=== PATIENT | male | born 1970 | race Caucasian/White ===

== ENCOUNTER 2021-01-20 19:29 | Emergency (ER) | payer BC, SELFPAY ==
--- NOTE | ~2021-01-20 | XR_ITS ---
XR knee LT min 4V 01/20/2021 19:47 INDICATION: Left knee pain PROCEDURE: 4 views left knee COMPARISON: No prior studies for comparison. FINDINGS: Fracture, dislocation or subluxation is not identified. The soft tissues appear within norm al limits. No foreign bodies are identified. IMPRESSION: 1: NO ACUTE BONE OR JOINT ABNORMALITY IDENTIFIED. Reviewed, dictated and finalized at location A.
[2021-01-20 19:33] VITALS: BP 132/79; PULSE 96; RESP 16; TEMP 36.9; O2SAT 98
--- NOTE | 2021-01-20 20:21 | ED.EXTPRO ---
HPI - Extremity Problem General Chief complaint: Extremity Problem,Nontraumatic Stated complaint: L Knee pain and swelling Time Seen by Provider: 01/20/21 19:44 Source: patient Mode of arrival: ambulatory Limitations: no limitations History of Present Illness HPI Narrative: Patient is 50 years old white male presents with pain and redness of the left knee anteriorly is started 2 days ago. After kneeling down on the ground to fix a car. Patient believes that he is high likely got stung by a wasp or something. Patient denies any fever, chills, nausea, vomiting, history of diabetes. Related Data Allergies Allergy/AdvReac Type Severity Reaction Status Date / Time fluticasone Allergy Unknown flu like Verified 01/20/21 19:40 symptoms Penicillins Allergy Unknown Hives Verified 01/20/21 19:40 salmeterol Allergy Unknown Unknown Verified 01/20/21 19:40 Review of Systems Review of Systems: Narrative: CONSTITUTIONAL: Denies fever, chills, or sweats. EYES: Denies visual changes, redness, or discharge. ENT: Denies rhinorrhea, congestion, sore throat, or otalgia. CARDIOVASCULAR: Denies chest pain, palpitations, or edema. RESPIRATORY: Denies cough or dyspnea. GASTROINTESTINAL: Denies abdominal pain, nausea, vomiting, or diarrhea. GENITOURINARY: Denies dysuria or hematuria. SKIN: Denies rash or itching. MUSCULOSKELETAL: Denies back pain, joint pain, or myalgia. NEUROLOGIC: Denies headache, numbness, or weakness. PSYCHIATRIC: Denies anxiety or depression. PMFSH Past Medical History Medical History Chronic obstructive pulmonary disease, unspecified Mixed hyperlipidemia Pulmonary emphysema Tobacco use disorder Vitamin D deficiency, unspecified Family History Family History Other Cerebrovascular accident Family history of arthritis Family history of cardiovascular disease Family history of chronic obstructive pulmonary disease Social History Social History Smoking packs per day: 2 Smoking cigarettes per day: 40.0 Smoking status: Current every day smoker Exam Narrative: Exam Narrative: General appearance: Well-developed, well-nourished Skin: Normal color, left knee showed diffuse erythema, slight tenderness, warmth anteriorly, no discharge Head: Normocephalic, nontraumatic Chest and respiratory: Airway patent, no respiratory distress, no accessory muscle use Heart: Regular rate/rhythm Abdomen: Soft, nontender, no organomegaly, quiet bowel sounds Vascular: Normal peripheral pulses, normal capillary refill. Musculoskeletal: Normal range of motion, nontender back Neurologic: Alert and oriented ?3, Course Course Emergency Course: Stable Vital Signs Vital signs: Vital Signs Temperature 36.9 C 01/20/21 19:33 Pulse Rate 96 01/20/21 19:33 Respiratory Rate 16 01/20/21 19:33 Blood Pressure 132/79 01/20/21 19:33 Pulse Oximetry 98 01/20/21 19:33 Temperature 36.9 C 01/20/21 19:33 Pulse Rate 96 01/20/21 19:33 Respiratory Rate 16 01/20/21 19:33 Blood Pressure 132/79 01/20/21 19:33 Pulse Oximetry 98 01/20/21 19:33 MDM - Extremity (Nontraumatic) MDM Narrative Medical decision making narrative: Cellulitis left knee is my concern. X-ray left knee ordered by triage, vancomycin IV ordered by me. Patient will be discharged on clindamycin. Differential Diagnosis Differential diagnosis: Likely other (Cellulitis) Imaging Data Radiologist's impression: Impressions Knee X-Ray 01/20/21 19:55 IMPRESSION: 1: NO ACUTE BONE OR JOINT ABNORMALITY IDENTIFIED.
[2021-01-20 22:20] VITALS: BP 124/86; PULSE 90; RESP 16; O2SAT 98
== END 2021-01-20 22:20 | disposition home or self-care (01) ==
PROVIDERS: Emergency Provider Emergency Medicine
DX: L03.116 Cellulitis of left lower limb (principal); J43.9 Emphysema, unspecified; E78.2 Mixed hyperlipidemia; E55.9 Vitamin D deficiency, unspecified; F17.210 Nicotine dependence, cigarettes, uncomplicated
CPT/HCPCS: 73564; 96365; 96366; 99284; J3370

== ENCOUNTER 2022-04-05 15:13 | Emergency (ER) | payer BC, SELFPAY ==
--- NOTE | ~2022-04-05 | XR_ITS ---
XR shoulder RT min 2V 04/05/2022 15:37 Indication: Right shoulder pain Procedure: 4 views right shoulder Comparison: No prior studies for comparison. Findings: There is mild polyarticular osteoarthritis. No fracture or traumatic malalignment. There is a healed distal clavicular fracture. No soft tissue abnormality. No foreign bodies. Impression: 1: Mild polyarticular osteoarthritis. Reviewed, dictated and finalized at location A. Impression: 1: Mild polyarticular osteoarthritis.
[2022-04-05 15:25] VITALS: BP 123/78; PULSE 86; RESP 18; TEMP 36.8; O2SAT 99
--- NOTE | 2022-04-05 15:40 | ED.UPPEXIN ---
HPI - Extremity Injury (Upper) General Chief Complaint: Extremity Problem,Nontraumatic Stated Complaint: Pain in right arm Time Seen by Provider: 04/05/22 15:43 Source: patient and RN notes reviewed Mode of arrival: ambulatory Limitations: no limitations History of Present Illness HPI narrative: 51-year-old male presents with concern for right shoulder pain. He reports earlier this week he began having shoulder pain when he woke up, he denies any injury or trauma. Reports that aches at rest and worsens with moving. He reports he hears a crunching sound in his shoulder. He reports some tingling in his fingers. He denies neck pain. He reports the shoulder pain is deep in the shoulder joint. MD complaint: injury to: right and shoulder Related Data Allergies Allergy/AdvReac Type Severity Reaction Status Date / Time fluticasone Allergy Unknown flu like Verified 01/20/21 19:40 symptoms Penicillins Allergy Unknown Hives Verified 01/20/21 19:40 salmeterol Allergy Unknown Unknown Verified 01/20/21 19:40 Review of Systems Review of Systems: CONSTITUTIONAL: Denies malaise, chills, sweats, or fever. SKIN: Denies rash or itching, open skin, laceration, abrasion, redness, warmth, swelling. MUSCULOSKELETAL: Reports right shoulder pain NEUROLOGIC: Denies numbness, weakness All systems reviewed & are unremarkable except as noted in HPI and below PMFSH Past Medical History Medical History Chronic obstructive pulmonary disease, unspecified Mixed hyperlipidemia Pulmonary emphysema Tobacco use disorder Vitamin D deficiency, unspecified Family History Family History Other Cerebrovascular accident Family history of arthritis Family history of cardiovascular disease Family history of chronic obstructive pulmonary disease Social History Social History Smoking packs per day: 2 Smoking cigarettes per day: 40.0 Smoking status: Current every day smoker Comments At time of signature, agree with nursing past medical, surgical, social and family history. There is no relevant family history pertinent to the presenting complaint Exam Narrative: GENERAL: Well-appearing, well-nourished, and in no acute distress. HEAD: Normocephalic, atraumatic. EYES: PERRLA, conjunctivae clear NECK: Supple. CHEST: Speaks in full sentences. No respiratory distress. HEART: Regular rate and rhythm. Normal and equal peripheral pulses. EXTREMITIES: Right shoulder, upper extremity has normal strength and sensation, normal range of motion. No edema or ecchymosis. 5/5 strength with upper extremity flexion and extension, abduction, abduction. Normal sensation with sensitivity to light touch and pain. No point tenderness. No open wounds, no skin tenting, no devitalized tissue or atrophy, no trophic changes, no obvious deformity, alignment normal, nearby joints and structures intact. Distal pulses palpable and equal bilaterally, skin warm, dry, pink. Capillary refill less than 3 seconds. SKIN: Warm, dry, no rash. NEURO: Alert and oriented x3. PSYCH: Normal mood and affect Course Course Emergency Course: Patient is aware of diagnosis, understands and agrees to treatment plan. Anticipatory guidance given. Patient agrees to follow-up as directed and is aware of reasons to seek care at the emergency department. Portions of this record may have been created with voice recognition software Level of Care: Express Care Visit Vital Signs Vital signs: Vital Signs Temperature 98.2 F 04/05/22 15:25 Pulse Rate 86 04/05/22 15:25 Respiratory Rate 18 04/05/22 15:25 Blood Pressure 123/78 04/05/22 15:25 Pulse Oximetry 99 04/05/22 15:25 Oxygen Delivery Room Air 04/05/22 15:25 Temperature 98.2 F 04/05/22 15:25 Pulse Rate 86 04/05/22 15:25 Respiratory Rate 18 04/05/22 15:25 Blood Pr
== END 2022-04-05 15:58 | disposition home or self-care (01) ==
PROVIDERS: Emergency Provider Nurse Practitioner; PCP Family Medicine
DX: M25.511 Pain in right shoulder (principal); E78.5 Hyperlipidemia, unspecified; F17.210 Nicotine dependence, cigarettes, uncomplicated
CPT/HCPCS: 73030; 99213; G0463